=== PATIENT | female | born 1995 | race Two or more races ===

== ENCOUNTER 2025-11-16 01:14 | Emergency (ER) | payer MEDICAID, OTHER ==
[~2025-11-16] VITALS: Ht 172.7 cm; Wt 78.0 kg
[2025-11-16 01:17] VITALS: BP 132/92; PULSE 82; RESP 18; TEMP 97.4; O2SAT 99
[2025-11-16 03:52] LABS: Urine Protein, UAD Negative (Negative)
--- NOTE | 2025-11-16 04:59 | ED.PDOC ---
[employer] HPI Comments 30-year-old female presents to ER with complaints of pelvic pain x2 days. Patient reports "I haven't had my period in 2-3 years" and x 2 days has been experiencing persistent 8/10 lower pelvic pain. Denies use of medications for current symptoms and presents to ER, ambulatory with steady gait, in no distress. 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 Family History Family History: Unknown Social History Smoker: Non-Smoker Alcohol: Denies ETOH Use Drugs: Denies Drug Use Lives In: Home Constitutional: denies: chills, diaphoresis, fatigue, fever, malaise, sweats, weakness, others EENTM: denies: blurred vision, double vision, ear bleeding, ear discharge, ear drainage, ear pain, ear ringing, eye pain, eye redness, hearing loss, mouth pain, mouth swelling, nasal discharge, nose bleeding, nose congestion, nose pain, photophobia, tearing, throat pain, throat swelling, voice changes, others Respiratory: denies: cough, hemoptysis, orthopnea, SOB at rest, shortness of breath, SOB with excertion, stridor, wheezing, others Cardiovascular: denies: chest pain, dizzy spells, diaphoresis, Dyspnea on exertion, edema, irregular heart beat, left arm pain, lightheadedness, palpita tions, PND, syncope, others Gastrointestinal: denies: abdomen distended, abdominal pain, blood streaked kimo wels, constipated, diarrhea, dysphagia, difficulty swallowing, hematemesis, melena, nausea, poor appetite, poor fluid intake, rectal bleeding, rectal pain, vomiting, others Genitourinary: reports: others (As stated in HPI) Neurological: denies: dizziness, fainting, headache, left sided numbness, left sided weakness, numbness, paresthesia, pre-existing deficit, right sided numbness, right sided weakness, seizure, speech problems, tingling, tremors, weakness, others Musculoskeletal: denies: back pain, gout, joint pain, joint swelling, muscle pain, muscle stiffness, neck pain, others Integumetry: denies: bruises, change in color, change in hair/nails, dryness, laceration, lesions, lumps, rash, wounds, others Allergic/Immunocompromised: denies: Difficulty Healing, Frequent Infections, Hives, Itching, others Hematologic/Lymphatic: denies: anemia, blood clots, easy bleeding, easy bruising, swollen glands, others Endocrine: denies: excessive hunger, excessive sweating, excessive thirst, excessive urination, flushing, intolerance to cold, intolerance to heat, unexplained weight gain, unexplained weight loss, others Psychiatric: denies: anxiety, bipolar disorder, depression, hopeless, panic disorder, schizophrenia, sleepless, suicidal, others Physical Exam General Appearance: No Apparent Distress HEENT: Normal ENT Inspection, PERRL/EOMI, Pharynx Normal, TMs Normal Neck: Full Range of Motion, Non-Tender, Normal Respiratory: Chest Non-Tender, Lungs Clear, No Accessory Muscle Use, No Respiratory Distress, Normal Breath Sounds Cardiovascular: No Murmur, No Gallop, Regular Rate/Rhythm Breast Exam: Deferred Gastrointestinal: No Organomegaly, No Pulsatile Mass, Normal Bowel Sounds, Soft, Suprapubic, Tenderness Genitalia: Deferred Pelvic: Deferred Rectal: Deferred Extremities: Normal capillary refill, Normal range of motion Neurologic: Alert, No Motor Deficits, Normal Affect, Normal Mood, No Sensory Deficits Cerebellar Function: Normal Reflexes: Normal Skin: Dry, Normal Color, Warm Peripheral Pulses: 2+ Radial (R), 2+ Radial (L), 2+ Brachial (R), 2+ Brachial (L) Lymphatic: No Adenopathy Was a procedure done? Was a procedure done?: No Sedation Sedation?: No Differential Diagnosis (BUS OR TRUCK G[employer] MECH[employer]IC) Vaginal Bleeding: Ectopic , Menorrhagia, PID, UTI Mass / Lesion: Bartholin Abscess Vaginal Discharge: Other (mass) X-Ray, Labs, Meds, VS Vital Signs Date Time Temp Pulse Resp B/P (MAP) Pulse Ox O2 Delivery O2 Flow Rate FiO2 11/16/25 01:17 97.4 82 18 132/92 99 97.4 Lab Test 11/16/25 02:54 Range/Units Urine Color Light-yellow Yellow Urine Clarity Clear Clear Urine pH 5.5 5.0-9.0 Urine Specific [place] 1.025 1.001-1.035 Urine Protein Negative Negative Urine Ketones Negative Negative Urine Blood Negative Negative /uL Urine Nitrite Negative Negative Urine Bilirubin Negative Negative Urine Urobilinogen Normal Negative mg/dL Urine Leukocyte Esterase Negative Negative /uL Urine RBC None seen 0 - 4 /hpf Urine Microscopic WBC 1 0-5 /HPF Urine Squamous Epithelial Cells Few <5 /hpf Urine Bacteria None seen None Seen /hpf Urine Glucose Normal Normal mg/dL Urine Test Negative Negative Urinalysis reviewed-unremarkable Urine reviewed-negative Patient refused lab work/pelvic ultrasound and was seen leaving ER and never returned Patient eloped from the emergency department Time of 1ST Reevaluation: 04:34 Reevaluation 1ST: N/A Patient Education/Counseling: Other (Patient eloped) Family Education/Counseling: No Family Present Departure 1 Departure Time of Disposition: 04:58 Impression: Primary Impression: Acute pelvic pain Disposition: 07 LEFT AWOL/ELOPED Condition: Fair Discharged With: Other (Patient eloped) Critical Care Note Critical Care Time?: No Stability Stability form required: No Heart Score Heart Score: Heart Score Response (Comments) Value History N/A 0 EKG N/A 0 Age N/A 0 Risk Factors N/A 0 Troponin N/A 0 Total 0 [place] POWELL Nov 16, 2025 04:59
== END 2025-11-16 04:58 | disposition left against medical advice (07) ==
LOC: ER 01:14
DX: R10.20 Pelvic and perineal pain unspecified side (principal); Z79.899 Other long term (current) drug therapy
CPT/HCPCS: 81001; 81025